=== PATIENT | female | born 1995 | race Caucasian/White ===

== ENCOUNTER 2021-09-19 10:51 | Outpatient (REF) | payer BC, SELFPAY | END 2021-09-19 10:52 | disposition home or self-care (01) | LOC: HO.LAB 10:51 | PROVIDERS: Visit Provider Hospitalist | DX: R82.90 Unspecified abnormal findings in urine (principal) | CPT/HCPCS: 87086 ==

== ENCOUNTER 2023-01-22 15:31 | Outpatient (AMB) | payer BC, SELFPAY ==
--- NOTE | 2023-01-22 15:34 | AM.OFFWIN_ITS ---
Intake Vital Signs 01/22/23 15:38 Height 5 ft 7 in Weight 233 lb BMI 36.5 BP 124/74 Blood Pressure Location Lt brachial Position Sitting Pulse 95 Pulse Source Pulse Oximeter Temp 97.5 F Temp Source Temporal Artery Scan Pulse Oximetry (%) 98 Oxygen Delivery Method Room Air Intake Visit Reasons: EST/rt foot toe numb ongoing Intake Note: Pt is here c/o right foot toe going numb. Pt states it has been on going for a few months. Pt states no falls or injuries, Patient Tobacco Use Status: Never used Tobacco Allergies penicillamine Allergy (Unknown, Verified 01/22/23 16:12) Unknown Penicillins [PENICILLINS] Allergy (Unknown, Verified 01/22/23 16:12) RASH Medication List - Last Reconciled 01/22/23 by MD Adan Anders norgest/e.estradiol-e.estrad 0.15 mg-30 mcg (84)/10 mcg (7) (Seasonique) 1 tab PO DAILY mupirocin 2% 1 appl topical BID 14 days sulfamethoxazole-trimethoprim 800-160 mg (Bactrim DS) 1 tab PO BID 5 days HPI EST/rt foot toe numb ongoing HPI Details 27-year-old female presents to the office for a sick visit. Patient is reporting numbness on her right great toe. She has been having it for the past month. It was throbbing a few weeks ago and the pain has subsided. No complaints elsewhere. Able to walk with no difficulty. Continues to work. [facility] Surgical History No pertinent past surgical history Family History Mother No problems noted. 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 Cognitive needs: No Hearing needs: No Vision needs: No Physical Exam Vital Signs: Last Vital Signs Temp 97.5 F 01/22/23 15:38 Pulse 95 01/22/23 15:38 BP 124/74 01/22/23 15:38 Pulse Ox 98 01/22/23 15:38 Oxygen Delivery Method Room Air 01/22/23 15:38 BMI result Body Mass Index 36.5 Const General: cooperative and healthy appearing Nutritional Appearance: well nourished Orientation/consciousness: patient oriented x3 Limitations: no limitations HEENT Head: Yes normal to inspection Eyes General: appearance normal, both eyes and all related structures Neck Neck: Yes normal visual inspection Chest Chest palpation & inspection: normal palpation of entire chest wall Resp Effort & Inspection: normal respiratory effort Neuro General: patient oriented x3 Extrem Other: Right foot: The tip of the toe just above the nail has less sensation compared to the other areas. No pain. Assessment & Plan Assessment & Plan (1) Paronychia of great toe: Code(s): L03.039 - Cellulitis of unspecified toe Plan: The numbness may be due to infection. Antibiotics will be called in. If symptoms do not improve in a month to follow-up here. Medications: New sulfamethoxazole-trimethoprim 800-160 mg (Bactrim DS) 1 tab PO BID 10 tabs 0RF 5 days Coding Level of Care Code Est Pt Level 3 (53809) Diagnoses Paronychia of great toe L03.039
[2023-01-22 15:38] VITALS: BP 124/74; PULSE 95; TEMP 36.4; O2SAT 98; BMI 36.5
== END 2023-01-22 16:41 | disposition home or self-care (01) ==
PROVIDERS: PCP Hospitalist; Visit Provider Internal Medicine
DX: L03.039 Cellulitis of unspecified toe (principal)
CPT/HCPCS: 99213

== ENCOUNTER 2023-04-16 08:06 | Outpatient (AMB) | payer BC, SELFPAY ==
--- NOTE | 2023-04-16 08:16 | AM.OFFWIN_ITS ---
Intake Vital Signs 04/16/23 08:18 Height 5 ft 7 in Weight 229 lb BMI 35.9 BP 120/68 Blood Pressure Location Rt brachial Position Sitting Pulse 93 Pulse Source Pulse Oximeter Temp 98.2 F Temp Source Temporal Artery Scan Pulse Oximetry (%) 99 Oxygen Delivery Method Room Air Intake Visit Reasons: EP Hair Loss Intake Note: pt is here for c/o hair loss patch back of head, under a lot of stress Patient Tobacco Use Status: Never used Tobacco Allergies penicillamine Allergy (Unknown, Verified 04/16/23 08:45) Unknown Penicillins [PENICILLINS] Allergy (Unknown, Verified 04/16/23 08:45) RASH Medication List - Last Reconciled 04/16/23 by Daniel Cortez MD clonazepam (Klonopin) 0.5 mg PO DAILY L norgest/e.estradiol-e.estrad 0.15 mg-30 mcg (84)/10 mcg (7) (Seasonique) 1 tab PO DAILY mupirocin 2% 1 appl topical BID 14 days Do you need a note to return to daycare/school/sports/work: Yes HPI EP Hair Loss HPI Details 28-year-old female presents to the [facility] for a sick visit. Patient is under significant mental stress. 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 Patient is unable to do the night auditor. In addition the mandatory overtime worsens her situation. Unable to sleep during the day. Racing thoughts at times. Crying spells. Patient has been losing excessive quantity of hair. She has a bald spot [facility] Surgical History No pertinent past surgical history Family History Mother No problems noted. 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 Cognitive needs: No Hearing needs: No Vision needs: No Physical Exam Vital Signs: Last Vital Signs Temp 98.2 F 10/31/23 08:18 Pulse 93 04/16/23 08:18 BP 120/68 04/16/23 08:18 Pulse Ox 99 04/16/23 08:18 Oxygen Delivery Method Room Air 04/16/23 08:18 BMI result Body Mass Index 35.9 Const General: cooperative and healthy appearing Nutritional Appearance: well nourished Orientation/consciousness: patient oriented x3 Limitations: no limitations HEENT Head: Yes normal to inspection Eyes General: appearance normal, both eyes and all related structures Neck Neck: Yes normal visual inspection Chest Chest palpation & inspection: normal palpation of entire chest wall Resp Effort & Inspection: normal respiratory effort Skin Other: Scalp: 3 cm circular area which is bold in the occipital part of the scalp. Neuro General: patient oriented x3 Assessment & Plan Assessment & Plan (1) Alopecia areata: Code(s): L63.9 - Alopecia areata, unspecified Plan: Patient needs to see a primary care provider. She has underlying anxiety which is worsening the lip Essure condition. Blood work to rule out thyroid disorders has been ordered. Clonazepam for anxiety has been provided. Patient needs to start SSRIs. A work note stating that patient cannot working extended hours has been given. Orders: Orders Thyroid Stimulating Hormone Today L63.9 - Alopecia areata, unspecified Complete Blood Count no Diff Today L63.9 - Alopecia areata, unspecified Liver Panel Today L63.9 - Alopecia areata, unspecified Lipid Panel Today L63.9 - Alopecia areata, unspecified Basic Metabolic Panel Today L63.9 - Alopecia areata, unspecified Erythrocyte Sedimentation Rate Today L63.9 - Alopecia areata, unspecified Medications: New clonazepam (Klonopin) 0.5 mg PO DAILY 14 tabs 0RF Coding Level of Care Code Est Pt Level 4 (92114) Diagnoses Alopecia areata L63.9
[2023-04-16 08:18] VITALS: BP 120/68; PULSE 93; TEMP 36.8; O2SAT 99; BMI 35.9
== END 2023-04-16 09:16 | disposition home or self-care (01) ==
PROVIDERS: PCP Hospitalist; Visit Provider Internal Medicine
DX: L63.9 Alopecia areata, unspecified (principal)
CPT/HCPCS: 99214

== ENCOUNTER 2023-08-08 11:27 | Outpatient (AMB) | payer BC, SELFPAY ==
[2023-08-08 11:41] VITALS: BP 118/80; PULSE 96; O2SAT 98; BMI 35.1
--- NOTE | 2023-08-08 11:41 | A.OFFPC_ITS ---
Vital Signs 08/08/23 11:41 Height 5 ft 7 in Weight 224 lb 7 oz BMI 35.1 BP 118/80 Blood Pressure Location Lt brachial Position Sitting Pulse 96 Pulse Source Pulse Oximeter Pulse Oximetry (%) 98 Oxygen Delivery Method Room Air Intake Visit Reasons: Hair Loss F/U Intake Note: Patient is here to follow up on hair loss, she states it's more, now, she states she is losing sleep, too. Patient is stating that she has been under a lot of stress lately. Is last menstrual period known: Yes (6 months ago, due to control) Allergies penicillamine Allergy (Unknown, Verified 08/08/23 11:44) Unknown Penicillins [PENICILLINS] Allergy (Unknown, Verified 08/08/23 11:44) RASH Tobacco use date assessed: 04/19/22 HPI Hair Loss F/U HPI Details 26 y/o female presents to f/u hair loss. Had ordered labs but did not seem to be done. Pt notes hair had started to grow back. Pt reports osme anxiety/difficulty sleeping. She denies any symptoms of sleep apnea. [facility] Surgical History No pertinent past surgical history Family History Mother No problems noted. 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 1. Little interest or pleasure in doing things: more than half the days 2. Feeling down, depressed, or hopeless: several days 3. Trouble falling or staying asleep, or sleeping too much: nearly every day 4. Feeling tired or having little energy: more than half the days 5. Poor appetite or overeating: not at all 6. Feeling bad about yourself - or that you are a failure or have let yourself or your family down: several days 7. Trouble concentrating on things, such as reading the newspaper or watching television: not at all 8. Moving or speaking so slowly that other people could have noticed. Or the opposite - being so fidgety or restless that you have been moving around a lot more than usual: not at all 9. Thoughts that you would be better off or of hurting yourself in some way: not at all Total score: 9 Source: Developed by Drs. Wilmar Machuca, Pepper Vasquez, Randy Martinez and colleagues, with an educational edwin from [employer]. Thrive Questionnaire Date Thrive assessed: 05/15/21 ASH-7 AMB Questionnaire ASH-7 Date ASH - 7 assessed: 08/08/23 Feeling nervous, anxious, or on edge: 2 = More than half the days Not being able to stop or control worryin = More than half the days Worrying too much about different things: 2 = More than half the days Trouble relaxin = Several days Being so restless that it is hard to sit still: 0 = Not at all Becoming easily annoyed or irritable: 2 = More than half the days Feeling afraid as if something awful might happen: 0 = Not at all Total ASH-7 score (0-4 normal; 5-9 mild; 10-14 moderate; 15-21 severe): 9 Source: Developed by Drs. Wilmar Machuca, Pepper Vasquez, Randy Martinez and colleagues, with an educational edwin from [employer]. Review of Systems Const Denies chills, Denies fatigue, Denies fever(s), Denies headache(s) and Denies weakness ENT Denies dizziness and Denies headache(s) Card Denies dyspnea Resp Denies cough, Denies dyspnea, Denies wheezing and Denies other (shortness of breath) Musc Denies numbness and Denies tingling Neuro Denies dizziness, Denies headache(s), Denies numbness, Denies tingling and Denies weakness Psych Denies anxiety and Denies depression Endo Denies fatigue Aller/Immun Denies wheezing Physical exam (Primary Care) Vital Signs: Last Vital Signs Pulse 96 08/08/23 11:41 BP 118/80 08/08/23 11:41 Pulse Ox 98 08/08/23 11:41 Oxygen Delivery Method Room Air 08/08/23 11:41 BMI result Body Mass Index 35.1 Tobacco/Smoking Status: Tobacco use Status Tobacco use date assessed 04/19/22 08/08/23 11:48 Patient Tobacco Use Status Never used Tobacco 08/08/23 11:48 e-Cigarette/Vaping Use Never Used 08/08/23 11:48 PHQ-9: PHQ-9 Score PHQ-9: Total score 9 08/08/23 12:00 Thrive Assessment: Date of Thrive Assessment Date Thrive assessed 05/15/21 08/08/23 11:48 Const General: well developed; No acute distress Nutritional Appearance: well nourished Orientation/consciousness: patient oriented x3 HENMT Head: Yes normocephalic and Yes atraumatic Eyes General: appearance normal, both eyes and all related structures Pupils: Equal, round and reactive pupils present EOM: EOMs intact bilaterally Resp Effort & Inspection: normal respiratory effort Neuro General: patient oriented x3 and gait normal Cranial nerves: Yes Equal, round and reactive pupils present Psych Affect: normal affect Assessment and Plan Assessment & Plan (1) Alopecia areata: Code(s): L63.9 - Alopecia areata, unspecified Plan: On?scaring alopecia?at?posterior?sc alp?and?small?area?at?front?left?area?of?scalp. Checking?labs Work?on?underlying?issues?such?as?anxiety/stress Will?give?her?another?letter?to?continue?to?avoid?working?overtime?so?she?can?ge t?more?rest/sleep Referred?to?dermatology (2) Difficulty sleeping: Code(s): G47.9 - Sleep disorder, unspecified Plan: Strong?family?history?of?sleep?apnea?with?both?parents?having?sleep?apnea. Patient?is?obese Has?difficulty?with?falling?asleep/staying?sleep Works?3rd?shift I?have?referred?her?to?Sleep?Medicine?for?evaluation Also?recommended?hair?and?nail?vitamins?which?she?can?get?over?the?counter (3) Anxiety: Code(s): F41.9 - Anxiety disorder, unspecified Plan: As?above,?will?give?her?a?note?for?work?as?she?has?increased?stress?and?should?n ot?be?working?overtime Will?trial?Zoloft Follow-up?in?3-4?weeks Orders: Orders Free T4 (Free Thyroxine) Today E03.9 - Hypothyroidism, unspecified Thyroid Stimulating Hormone Today E03.9 - Hypothyroidism, unspecified Triiodothyronine T3 Total Today E03.9 - Hypothyroidism, unspecified Comprehensive Met. Panel Today F41.9 - Anxiety disorder, unspecified Complete Blood Count Auto Diff Today F41.9 - Anxiety disorder, unspecified, Z00.00 - Encounter for general adult medical examination without abnormal findings Erythrocyte Sedimentation Rate Today F41.9 - Anxiety disorder, unspecified Referrals Sleep Medicine Referral G47.9 - Sleep disorder, unspecified Dermatology Referral L63.9 - Alopecia areata, unspecified Medications: New sertraline 50 mg PO DAILY 30 tabs 2RF 30 days Coding Level of Care Code Est Pt Level 4 (32484) Diagnoses Alopecia areata L63.9 Difficulty sleeping G47.9 Anxiety F41.9
== END 2023-08-08 12:37 | disposition home or self-care (01) ==
PROVIDERS: PCP Hospitalist; Visit Provider Family Medicine
DX: L63.9 Alopecia areata, unspecified (principal); G47.9 Sleep disorder, unspecified; F41.9 Anxiety disorder, unspecified
CPT/HCPCS: 99214

== ENCOUNTER 2023-08-08 12:28 | Outpatient (REF) | payer BC, SELFPAY ==
[2023-08-08 14:29] LABS: MANUAL DIFF FLAG NO
[2023-08-08 14:34] LABS: Basophils Absolute Auto 0.1 X10*3/uL (0.0-0.2); Basophils Percent Auto 0.6 % (0-2); Eosinophils Absolute Auto 0.3 X10*3/uL (0.0-0.4); Eosinophils Percent Auto 4.1 % (0-4); Hematocrit 40.5 % (37.0-47.0); Hemoglobin 13.7 g/dl (12.0-16.0); Imm Gran Abs Auto 0.02 X10*3/uL (0.00-0.03); Imm Gran Pct Auto 0.2 % (0.0-0.4); Lymphocytes Percent Auto 37.4 % (20-40); Mean Corpuscular HGB Conc 33.8 g/dl (31.0-35.0); Mean Corpuscular Hemoglobin 29.5 pg (27.0-33.0); Mean Corpuscular Volume 87.3 fL (80.0-98.0); Mean Platelet Volume 9.1 fL (9.4-12.3); Monocytes Absolute Auto 0.5 X10*3/uL (0.1-1.2); Monocytes Percent Auto 6.7 % (2-11); Neutrophils Absolute Auto 4.1 x10*3/uL (2.0-8.3); Platelet Count 284 X10*3/uL (160-400); Red Blood Count 4.64 X10*6/uL (4.20-5.50); White Blood Count 8.1 X10*3/uL (4.8-10.8)
[2023-08-08 15:05] LABS: Alanine Aminotransferase 21 U/L (0-31); Albumin Level 4.1 g/dL (3.5-5.0); Alkaline Phosphatase 73 U/L (39-117); Anion Gap 13 (12-20); Aspartate Amino Transferase 22 U/L (5-31); Bilirubin Total 1.4 mg/dL (0.0-1.0); Blood Urea Nitrogen 16 mg/dL (9-16); Calcium 9.4 mg/dL (8.4-10.2); Carbon Dioxide 25 mmol/L (22-29); Chloride 106 mmol/L (96-108); Estimated Glomerular Filt Rate > 60; Glucose Random 76 mg/dL (60-115); Sodium 140 mmol/L (135-145)
[2023-08-08 15:09] LABS: Thyroid Stimulating Hormone 1.32 uIU/mL (0.32-4.0)
[2023-08-08 15:26] LABS: Erythrocyte Sedimentation Rate 7 MM/HR (0-20)
[2023-08-09 09:17] LABS: Triiodothyronine T3 Total 167 ng/dL (76-181)
== END 2023-08-08 12:29 | disposition home or self-care (01) ==
LOC: HO.WFDLDS 12:28
PROVIDERS: Visit Provider Family Medicine
DX: Z00.00 Encounter for general adult medical examination without abnormal findings (principal); E03.9 Hypothyroidism, unspecified; F41.9 Anxiety disorder, unspecified
CPT/HCPCS: 36415; 80053; 84439; 84443; 84480; 85025; 85652

== ENCOUNTER 2023-08-16 13:55 | Outpatient (AMB) | payer BC, SELFPAY ==
[2023-08-16 14:09] VITALS: BP 122/88; PULSE 81; O2SAT 98; BMI 35.9
--- NOTE | 2023-08-16 14:09 | MHC.OFFVIS ---
Intake Vital Signs 08/16/23 14:09 Height 5 ft 7 in Weight 229 lb BMI 35.9 BP 122/88 Blood Pressure Location Rt brachial Position Sitting Pulse 81 Pulse Source Pulse Oximeter Pulse Oximetry (%) 98 Oxygen Delivery Method Room Air Intake Visit Reasons: INP-Sleep disorder-Conf Intake Note: Patient presents for sleep issues. Has started to have issues with falling asleep when starting 3rd shift in February. Allergies penicillamine Allergy (Unknown, Verified 08/16/23 14:11) Unknown Penicillins [PENICILLINS] Allergy (Unknown, Verified 08/16/23 14:11) RASH Medication List - Last Reconciled 08/16/23 by MARIUSZ Valenzuela norgest/e.estradiol-e.estrad 0.15 mg-30 mcg (84)/10 mcg (7) (Seasonique) 1 tab PO DAILY multivitamin with minerals (Hair,Skin and Nails tablet) 1 tab PO BEDTIME sertraline 50 mg PO DAILY 30 days HPI HPI Comments History of Present Illness Details 28-yr-old female presents for new in-person patient visit for sleep consultation. Pt started working 3rd (11pm-7am) shift at a [employer] in Feb 2024. 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 Since, she has had difficulty sleeping- specifically difficulty staying and falling asleep. However, can easily fall asleep during her shift break while at work. She has also had increased stress, anxiety, ammenorhea, and hair loss. 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 Her bedroom is dark and quiet. She does not have excessive caffeine intake. Does not usually eat while at work. Does still eat 3 meals per day at usual times. 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 She denies snoring, gasping arousals, wt gain. Prior to working 3rd shift, she did not have any difficulty sleeping. [facility] Surgical History (Updated 08/16/23 @ 14:12 by TIMOTHY Flower) S/P wisdom tooth extraction No pertinent past surgical history Family History Mother No problems noted. 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 Cognitive needs: No Hearing needs: No Vision needs: No Review of Systems Const All systems reviewed & are unremarkable except as noted in HPI and below Physical Exam Vital Signs: Last Vital Signs Pulse 81 08/16/23 14:09 BP 122/88 08/16/23 14:09 Pulse Ox 98 08/16/23 14:09 Oxygen Delivery Method Room Air 08/16/23 14:09 BMI result Body Mass Index 35.9 Const General: no acute distress Orientation/consciousness: patient oriented x3 Resp Effort & Inspection: able to speak in complete sentences Neuro General: patient oriented x3 Psych Mental Status: mental status grossly normal Speech and movement: Clear speech present Attitude: cooperative Assessment & Plan Assessment & Plan (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 Continue to sleep in a dark, quiet space. Concur with eating her primary meals during day/evening rather than at night. Information shared on sleep hygiene and CBT-insomnia resources. 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 f/u in 4-6 months or sooner prn. Telehealth Telehealth Location of provider rendering services: practice address Location of patient: address on file Patient Identification confirmed using: Name, : Yes Telehealth method: voice only Patient verbally consented to treatment: Yes Patient verbally consented to billing insurance company: Yes Patient informed of any privacy concerns related to visit: Yes Coding Level of Care Code New Pt Level 3 (08101) Diagnoses Shift work sleep disorder G47.26 Difficulty sleeping G47.9
== END 2023-08-16 15:31 | disposition home or self-care (01) ==
PROVIDERS: PCP Hospitalist; Visit Provider Nurse Practitioner Family
DX: G47.26 Circadian rhythm sleep disorder, shift work type (principal); G47.9 Sleep disorder, unspecified
CPT/HCPCS: 99203

== ENCOUNTER → 2023-08-16 13:55 | Outpatient (BNVA) | payer BC, SELFPAY | PROVIDERS: PCP Hospitalist; Visit Provider Nurse Practitioner Family ==

== ENCOUNTER 2023-09-12 15:37 | Outpatient (AMB) | payer BC, SELFPAY ==
--- NOTE | 2023-09-12 15:32 | MHC.PC.OV ---
Intake Visit Reasons: f/u labs Intake Note: Patient is following up on her lab work today. Allergies penicillamine Allergy (Unknown, Verified 09/12/23 15:33) Unknown Penicillins [PENICILLINS] Allergy (Unknown, Verified 09/12/23 15:33) RASH Tobacco use date assessed: 09/12/23 Dental Screening Dental Screen Date: 09/12/23 Did you have a dental visit in the last 12 months?: Yes Did you have a dental problem in the last 6 months where you did not have access to dental care?: No Was dental information given to patient?: Patient has dentist HPI f/u labs HPI Details 28 y/o female presents to f/u anxiety and labwork. Had started her on zoloft. Lab work is to evaluate for alopecia which is likely secondary to stress/anxiety. Labs were drawn 08/08/23. Reviewed labs with pt. Labs seem fine. Pt reports alopecia unchanged. Dermatology has not contacted her yet. She notes sertraline seems to have improved her mood. [facility] Surgical History S/P wisdom tooth extraction No pertinent past surgical history Family History Mother No problems noted. 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 Wilmar Machuca, Pepper Vasquez, Randy Martinez and colleagues, with an educational edwin from [employer]. Review of Systems Const Denies chills, Denies fatigue, Denies fever(s), Denies headache(s) and Denies weakness ENT Denies dizziness and Denies headache(s) Card Denies dyspnea Resp Denies cough, Denies dyspnea, Denies wheezing and Denies other (shortness of breath) Musc Denies numbness and Denies tingling Neuro Denies dizziness, Denies headache(s), Denies numbness, Denies tingling and Denies weakness Psych Denies anxiety and Denies depression Endo Denies fatigue Aller/Immun Denies wheezing Physical exam (Primary Care) Tobacco/Smoking Status: Tobacco use Status Tobacco use date assessed 09/12/23 09/12/23 15:36 Patient Tobacco Use Status Never used Tobacco 09/12/23 15:36 e-Cigarette/Vaping Use Never Used 09/12/23 15:36 Thrive Assessment: Date of Thrive Assessment Date Thrive assessed 05/15/21 09/12/23 15:36 Telehealth Telehealth Location of provider rendering services: practice address Location of patient: address on file Patient Identification confirmed using: Name, : Yes Telehealth method: voice only Patient verbally consented to treatment: Yes Patient verbally consented to billing insurance company: Yes Patient informed of any privacy concerns related to visit: Yes Minutes spent on Phone/Video with Pt.: 7 Assessment and Plan Assessment & Plan (1) Anxiety: Code(s): F41.9 - Anxiety disorder, unspecified Plan: Patient?notes?significant?improvement?with?starting?sertraline?50?mg?daily.??She?had?been?wondering?about?increasing?the?dose. She?will?try?1.5?tablets?of?sertraline?50?mg?(75?mg?daily). She?can?go?back?to?50?mg?daily?if?she?has?any?problems. Script?sent We?can?follow-up?in?a?couple?of?months (2) Alopecia areata: Code(s): L63.9 - Alopecia areata, unspecified Plan: Patient?still?has?some?alopecia?at?crown?of?head Lab?work?was?unrevealing Had?referred?her?to?new?[facility]?dermatology?but?they?have?not?responded?and?she?would?like?a?referral?to [facility]?dermatology Referral?made Medications: Changed From sertraline 50 mg PO DAILY 30 days 30 tabs 2RF To sertraline 75 mg (1.5 x 50 mg) PO DAILY 30 days 45 tabs 2RF Coding Level of Care Code Tele Est Pt Level 2 (36399) Diagnoses Anxiety F41.9 Alopecia areata L63.9
== END 2023-09-12 17:00 | disposition home or self-care (01) ==
LOC: HO.HMGFM 15:37
PROVIDERS: PCP Hospitalist; Visit Provider Family Medicine
DX: F41.9 Anxiety disorder, unspecified (principal); L63.9 Alopecia areata, unspecified
CPT/HCPCS: 99441

== ENCOUNTER 2023-10-18 15:00 | Outpatient (AMB) | payer BC, SELFPAY ==
[2023-10-18 15:01] VITALS: BP 134/80; PULSE 95; TEMP 36.7; O2SAT 99; BMI 35.1
--- NOTE | 2023-10-18 15:01 | AM.OFFWIN_ITS ---
Intake Vital Signs 3 10/18/23 15:01 Height 5 ft 7 in Weight 224 lb 2 oz BMI 35.1 BP 134/80 Blood Pressure Location Lt brachial Position Sitting Pulse 95 Pulse Source Pulse Oximeter Temp 98.0 F Temp Source Oral Pulse Oximetry (%) 99 Oxygen Delivery Method Room Air Intake Visit Reasons: EP rash on neck and behind ears Intake Note: Pt presents to the office today for c/o rash on her neck and behind her ears. She states this started about 2 days ago. She states it is itchy. Patient Tobacco Use Status: Never used Tobacco Allergies penicillamine Allergy (Unknown, Verified 10/18/23 15:04) Unknown Penicillins [PENICILLINS] Allergy (Unknown, Verified 10/18/23 15:04) RASH HPI HPI Comments 2 History of Present Illness0 Details 28 y/o female patient who presents to [facility] with c/o Rash that is very itchy, burning and feeling pins/needles. She noticed the rash 2 days ago. Rash is located on the back of her neck. 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 [facility] Surgical History S/P wisdom tooth extraction No pertinent past surgical history Family History Mother No problems noted. 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 Very tender to touch and burning and itching. Rashes: rashes noted Full body images: 2 1. A group of Small red fluid filled vesicles on the back of the neck. Very tender to touch and burning and itching. Neuro General: patient oriented x3, gait normal and moves all extremities Psych Speech and movement: Normal speech and movement present Assessment & Plan Assessment & Plan (1) Rash and nonspecific skin eruption: Code(s): R21 - Rash and other nonspecific skin eruption Plan: Shingles vs Dermatitis vs Eczema Take medicine as directed. Ordered Valacyclovir - symptoms within 72 hours. Medications: New 2 valacyclovir 1,000 mg PO BID 10 days 20 tabs 0RF R21 - Rash and other nonspecific skin eruption diphenhydramine HCl (Benadryl Allergy) 25 mg PO BEDTIME PRN 20 tabs 0RF itching R21 - Rash and other nonspecific skin eruption Coding Level of Care Code Est Pt Level 3 (74267) Diagnoses Rash and nonspecific skin eruption R21 Time Spent (min) 15
== END 2023-10-18 16:03 | disposition home or self-care (01) ==
PROVIDERS: PCP Hospitalist; Visit Provider Nurse Practitioner Family
DX: R21 Rash and other nonspecific skin eruption (principal)
CPT/HCPCS: 99213

== ENCOUNTER → 2023-12-11 16:06 | Outpatient (AMB) | payer BC, SELFPAY ==
[2023-12-11 16:12] VITALS: BP 126/76; PULSE 81; O2SAT 98; BMI 34.6
--- NOTE | 2023-12-11 16:12 | A.OFFPC_ITS ---
Vital Signs 12/11/23 16:12 Height 5 ft 7 in Weight 221 lb 2 oz BMI 34.6 BP 126/76 Blood Pressure Location Lt brachial Position Sitting Pulse 81 Pulse Source Pulse Oximeter Pulse Oximetry (%) 98 Oxygen Delivery Method Room Air Intake Visit Reasons: 3 month f/u Intake Note: Patient is here to follow up on anxiety and alopecia. She would like to talk about FMLA with her anxiety, trouble sleeping. Allergies penicillamine Allergy (Unknown, Verified 12/11/23 16:16) Unknown Penicillins [PENICILLINS] Allergy (Unknown, Verified 12/11/23 16:16) RASH Medication List - Last Reconciled 12/11/23 by Luca Severino MD L norgest/e.estradiol-e.estrad 0.15 mg-30 mcg (84)/10 mcg (7) (Seasonique) 1 tab PO DAILY multivitamin with minerals (Hair,Skin and Nails tablet) 1 tab PO BEDTIME sertraline 75 mg (1.5 x 50 mg) PO DAILY 30 days Tobacco use date assessed: 09/12/23 Dental Screening Dental Screen Date: 09/12/23 HPI 3 month f/u HPI Details 28 y/o female presents to f/u anxiety. Had started her on sertraline and she stated she had been doing well on this so increased it from 50mg to 75mg daily. Pt states she would like to discuss FMLA for anxiety/difficulty sleeping. HPI Comments History of Present Illness Details Documentation assistance for Luca Severino MD, was provided by Tylor Alcaraz, [employer] on 12/11/2023 at 4:34 PM EST. I, Dr. Severino, have read, observed, and verified documentation. [facility] Surgical History S/P wisdom tooth extraction No pertinent past surgical history Family History Mother No problems noted. 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 Wilmar Machuca, Pepper Vasquez, Randy Martinez and colleagues, with an educational edwin from [employer]. Review of Systems Const Denies chills, Denies fatigue, Denies fever(s), Denies headache(s) and Denies weakness ENT Denies dizziness and Denies headache(s) Card Denies dyspnea Resp Denies cough, Denies dyspnea, Denies wheezing and Denies other (shortness of breath) Musc Denies numbness and Denies tingling Neuro Denies dizziness, Denies headache(s), Denies numbness, Denies tingling and Denies weakness Psych Reports anxiety and Denies depression Endo Denies fatigue Aller/Immun Denies wheezing Physical exam (Primary Care) BMI result Body Mass Index 34.6 Tobacco/Smoking Status: Tobacco use Status Tobacco use date assessed 09/12/23 12/11/23 16:13 Patient Tobacco Use Status Never used Tobacco 12/11/23 16:13 e-Cigarette/Vaping Use Never Used 12/11/23 16:13 Thrive Assessment: Date of Thrive Assessment Date Thrive assessed 05/15/21 12/11/23 16:13 Const General: well developed; No acute distress Nutritional Appearance: well nourished Orientation/consciousness: patient oriented x3 HENMT Head: Yes normocephalic and Yes atraumatic Eyes General: appearance normal, both eyes and all related structures Pupils: Equal, round and reactive pupils present EOM: EOMs intact bilaterally Resp Effort & Inspection: normal respiratory effort Neuro General: patient oriented x3 and gait normal Cranial nerves: Yes Equal, round and reactive pupils present Psych Affect: normal affect Assessment and Plan Assessment & Plan (1) Anxiety: Code(s): F41.9 - Anxiety disorder, unspecified Plan: Ongoing/worsened?anxiety?and?also?difficulty?sleeping. Had?seen?Sleep?Medicine but?they?did?not?feel?that?her?symptoms?warranted?a?sleep?study.??Did?recommend? follow-up?however. Will?give?her?a?script?for?trazodone?which?s he?can?try?for?both?sleep?and?may?also?improve?mood. If?still?having?difficulty?with?anxiety, would?consider?a?2nd?line?medication?such?as?lorazepam?or?clonazepam. Her?anxiety?and?difficulty?sleepi ng?are?exacerbated?by?3rd?shift?were?and?also?working?overtime.??I?have?recommen ded?she?not?work?more?than?8?hours?per?day?or?40?hours?per?week.??I?have?sent?a? letter?to?his?employer?regarding?this. Will?complete?FMLA?paperwork?for?her?if?they?provide?her?with?it. (2) Difficulty sleeping: Code(s): G47.9 - Sleep disorder, unspecified Plan: As?above,?trialing?trazodone Will?recommend?that?she?follow-up?with?sleep?medicine (3) Alopecia areata: Code(s): L63.9 - Alopecia areata, unspecified Plan: Worsening?alopecia She?has?still?not?been?contacted?by?Dermatology?and?I?will?ask?t he?office?to?facilitate?an?appointment. Orders: Orders Lipid Panel Today Z00.00 - Encounter for general adult medical examination without abnormal findings Microalbumin, Random (w Creat) Today I10 - Essential (primary) hypertension TSH reflex Free T4 Today Z00.00 - Encounter for general adult medical examination without abnormal findings Comprehensive [place]. Panel Fast Today Z00.00 - Encounter for general adult medical examination without abnormal findings Complete Blood Count Auto Diff Today Z00.00 - Encounter for general adult medical examination without abnormal findings UA and rflx microscopic Today Z00.00 - Encounter for general adult medical examination without abnormal findings Coding Level of Care Code Est Pt Level 3 (38926) Diagnoses Anxiety F41.9 Difficulty sleeping G47.9 Alopecia areata L63.9
== END ==
PROVIDERS: PCP Hospitalist; Visit Provider Family Medicine
DX: F41.9 Anxiety disorder, unspecified (principal); G47.9 Sleep disorder, unspecified; L63.9 Alopecia areata, unspecified
CPT/HCPCS: 99213

== ENCOUNTER 2024-01-03 14:19 | Outpatient (AMB) | payer BC, SELFPAY ==
--- NOTE | 2024-01-03 14:33 | A.OFFPC_ITS ---
Intake Visit Reasons: alopecia Allergies penicillamine Allergy (Unknown, Verified 12/11/23 16:16) Unknown Penicillins [PENICILLINS] Allergy (Unknown, Verified 12/11/23 16:16) RASH Tobacco use date assessed: 09/12/23 Dental Screening Dental Screen Date: 09/12/23 [facility] Surgical History S/P wisdom tooth extraction No pertinent past surgical history Family History Mother No problems noted. 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 Wilmar Machuca, Pepper Vasquez, Randy Martinez and colleagues, with an educational edwin from [employer]. Physical exam (Primary Care) Tobacco/Smoking Status: Tobacco use Status Tobacco use date assessed 09/12/23 12/11/23 16:13 Patient Tobacco Use Status Never used Tobacco 12/11/23 16:13 e-Cigarette/Vaping Use Never Used 12/11/23 16:13 Thrive Assessment: Date of Thrive Assessment Date Thrive assessed 05/15/21 12/11/23 16:13 Coding
[2024-01-03 14:35] VITALS: BP 122/68; PULSE 82; O2SAT 98; BMI 35.4
--- NOTE | 2024-01-03 14:35 | MHC.PC.OV ---
Vital Signs 01/03/24 14:35 Height 5 ft 7 in Weight 226 lb BMI 35.4 BP 122/68 Blood Pressure Location Lt brachial Position Sitting Pulse 82 Pulse Source Pulse Oximeter Pulse Oximetry (%) 98 Oxygen Delivery Method Room Air Intake Visit Reasons: alopecia Intake Note: Patient is looking for a solution for the alopecia until she sees deramatology. Patient is following up on anxiety. Allergies penicillamine Allergy (Unknown, Verified 01/03/24 14:39) Unknown Penicillins [PENICILLINS] Allergy (Unknown, Verified 01/03/24 14:39) RASH Tobacco use date assessed: 01/03/24 Dental Screening Dental Screen Date: 09/12/23 HPI alopecia HPI Details 28 y/o female presents to f/u anxiety, alopecia. Had referred her to Dermatology for worsening alopecia. Had given her a script for trazodone for anxiety/difficulty sleeping. PHQ-9 4, ASH-7 4 today. Pt notes trazodone did not help her sleep - she additionally felt groggy when she woke up. Pt notes mood improved on sertraline 75mg daily though she notes some days of irritability/anxiety. [facility] Surgical History S/P wisdom tooth extraction No pertinent past surgical history Family History Mother No problems noted. 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 1. Little interest or pleasure in doing things: not at all 2. Feeling down, depressed, or hopeless: not at all 3. Trouble falling or staying asleep, or sleeping too much: nearly every day 4. Feeling tired or having little energy: not at all 5. Poor appetite or overeating: several days 6. Feeling bad about yourself - or that you are a failure or have let yourself or your family down: not at all 7. Trouble concentrating on things, such as reading the newspaper or watching television: not at all 8. Moving or speaking so slowly that other people could have noticed. Or the opposite - being so fidgety or restless that you have been moving around a lot more than usual: not at all 9. Thoughts that you would be better off or of hurting yourself in some way: not at all Total score: 4 Depression Screening Interpretation: Negative Depression Screening Done: Yes Source: Developed by Drs. Wilmar Machuca, Pepper Vasquez, Randy Martinez and colleagues, with an educational edwin from [employer]. Thrive Questionnaire Date Thrive assessed: 05/15/21 ASH-7 AMB Questionnaire ASH-7 Date ASH - 7 assessed: 01/03/24 Feeling nervous, anxious, or on edge: 1 = Several days Not being able to stop or control worryin = Several days Worrying too much about different things: 1 = Several days Trouble relaxin = Not at all Being so restless that it is hard to sit still: 0 = Not at all Becoming easily annoyed or irritable: 1 = Several days Feeling afraid as if something awful might happen: 0 = Not at all Total ASH-7 score (0-4 normal; 5-9 mild; 10-14 moderate; 15-21 severe): 4 Source: Developed by Drs. Wilmar Machuca, Pepper Vasquez, Randy Martinez and colleagues, with an educational edwin from [employer]. Review of Systems Const Denies chills, Denies fatigue, Denies fever(s), Denies headache(s) and Denies weakness ENT Denies dizziness and Denies headache(s) Card Denies dyspnea Resp Denies cough, Denies dyspnea, Denies wheezing and Denies other (shortness of breath) Musc Denies numbness and Denies tingling Neuro Denies dizziness, Denies headache(s), Denies numbness, Denies tingling and Denies weakness Psych Reports anxiety Endo Denies fatigue Aller/Immun Denies wheezing Physical exam (Primary Care) Vital Signs: Last Vital Signs Pulse 82 01/03/24 14:35 BP 122/68 01/03/24 14:35 Pulse Ox 98 01/03/24 14:35 Oxygen Delivery Method Room Air 01/03/24 14:35 BMI result Body Mass Index 35.4 Tobacco/Smoking Status: Tobacco use Status Tobacco use date assessed 01/03/24 01/03/24 14:45 Patient Tobacco Use Status Never used Tobacco 01/03/24 14:38 e-Cigarette/Vaping Use Never Used 01/03/24 14:38 PHQ-9: PHQ-9 Score PHQ-9: Total score 4 01/03/24 15:55 Depression Screening Interpretation: Negative Thrive Assessment: Date of Thrive Assessment Date Thrive assessed 05/15/21 01/03/24 14:38 Const General: well developed; No acute distress Nutritional Appearance: well nourished Orientation/consciousness: patient oriented x3 HENMT Head: Yes normocephalic and Yes atraumatic Eyes General: appearance normal, both eyes and all related structures Pupils: Equal, round and reactive pupils present EOM: EOMs intact bilaterally Resp Effort & Inspection: normal respiratory effort Neuro General: patient oriented x3 and gait normal Cranial nerves: Yes Equal, round and reactive pupils present Psych Affect: normal affect Assessment and Plan Assessment & Plan (1) Anxiety: Code(s): F41.9 - Anxiety disorder, unspecified Plan: Ongoing?anxiety - taking?sertraline?as?prescribed Will?add?bupropion?as?adjunct?medication (2) Alopecia areata: Code(s): L63.9 - Alopecia areata, unspecified Plan: Worsening?alopecia?areata?with?lesion?at?right?and?left?sides?of?scalp Will?give?her?a?script?for?ketoconazole.??When?finish?she?will?start?fluocinolone?shampoo Have?tried?referring?her?to?several?email marketing intern?and?[facility]?time?is?very?long.??Will?try?[facility]?dermatology (3) Difficulty sleeping: Code(s): G47.9 - Sleep disorder, unspecified Plan: Has?tried?trazodone?without?any?improve Trial?of?Lunesta Orders: Referrals Dermatology Referral L63.9 - Alopecia areata, unspecified Medications: New ketoconazole 2% 1 appl topical 2XW 14 days 120 mL 0RF eszopiclone (Lunesta) 2 mg PO BEDTIME 14 days 14 tabs 1RF fluocinolone 0.01% 30 mL topical DAILY 7 days 120 mL 0RF bupropion HCl 75 mg PO QAM 30 days 30 tabs 1RF Discontinued trazodone Discontinued Reason: Doctor's Order 50 mg PO BEDTIME 30 days PRN 30 tabs 1RF sleep Coding Level of Care Code Est Pt Level 4 (06296) Diagnoses Anxiety F41.9 Alopecia areata L63.9 Difficulty sleeping G47.9
== END 2024-01-03 16:14 | disposition home or self-care (01) ==
PROVIDERS: PCP Family Medicine; Visit Provider Family Medicine
DX: F41.9 Anxiety disorder, unspecified (principal); L63.9 Alopecia areata, unspecified; G47.9 Sleep disorder, unspecified
CPT/HCPCS: 99214

== ENCOUNTER 2024-04-10 08:02 | Outpatient (AMB) | payer BC, SELFPAY ==
--- NOTE | 2024-04-10 08:05 | AM.OFFWIN_ITS ---
Intake Vital Signs 04/10/24 08:06 Height 5 ft 7 in Weight 221 lb BMI 34.6 BP 136/98 H Blood Pressure Location Lt brachial Position Sitting Pulse 76 Pulse Source Pulse Oximeter Temp 97.7 F Temp Source Oral Pulse Oximetry (%) 98 Intake Visit Reasons: EP-migraine Patient Tobacco Use Status: Never used Tobacco Allergies penicillamine Allergy (Unknown, Verified 04/10/24 08:07) Unknown Penicillins [PENICILLINS] Allergy (Unknown, Verified 04/10/24 08:07) RASH HPI HPI Comments History of Present Illness Details Patient is a 29-year-old female complaining of headaches for the last month. She said she works 3rd shift for the past year but the headaches just started a month ago. She tells me she has also had some hair loss in the same area where the headaches originate on the top right side of her head. She states she has tried taking 1 g of Tylenol but it does not seem to knock out her headache. She tells me last weekend she had 1 episode of vomiting with [facility] at the same time but she did not denies any nausea, visual changes, light sensitivity, sound sensitivity or dizziness. She tells me she is eating and drinking her normal amount and is getting her typical amount of rest. She states the headache is not a thunderclap headache or the worst headaches of her life. [facility] Surgical History S/P wisdom tooth extraction No pertinent past surgical history Family History Mother No problems noted. 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 Cognitive needs: No Hearing needs: No Vision needs: No Review of Systems Const All systems reviewed & are unremarkable except as noted in HPI and below Physical Exam Vital Signs: Last Vital Signs Temp 97.7 F 04/10/24 08:06 Pulse 76 04/10/24 08:06 BP 136/98 H 04/10/24 08:06 Pulse Ox 98 04/10/24 08:06 BMI result Body Mass Index 34.6 Const General: cooperative, healthy appearing, comfortable, no acute distress and well developed Orientation/consciousness: patient oriented x3 Limitations: no limitations HEENT Head: Yes normal to inspection Ears: hearing grossly normal bilaterally General nose exam: Normal external nose present Face and sinus: Yes normal facial exam Eyes General: appearance normal, both eyes and all related structures Neck Neck: Yes normal visual inspection and Yes full ROM Resp Effort & Inspection: normal respiratory effort and able to speak in complete sentences Skin General skin exam: no rashes or lesions noted Neuro General: patient oriented x3 Extrem General: Yes normal to inspection Assessment & Plan Assessment & Plan (1) Headache: Code(s): R51.9 - Headache, unspecified Qualifiers: Headache type: unspecified Headache chronicity pattern: acute headache Intractability: intractable Qualified Code(s): R51.9 - Headache, unspecified Plan: Recommended she staying well hydrated, improve sleep hygiene, take 1 g of Tylenol every 8 hours and ibuprofen 600 mg every 6 hours, can add in some caffeine. Likely secondary to her shift work, possibly a thyroid dysfunction with the hair loss, recommended she try this regimen and if it does not improve, she should follow up with her primary care doctor in the next 2-3 weeks for further workup. Did review if she feels like she is having the worst headache of her life or a thunderclap headache or visual changes, she should go to the emergency room immediately. 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
[2024-04-10 08:06] VITALS: BP 136/98; PULSE 76; TEMP 36.5; O2SAT 98; BMI 34.6
== END 2024-04-10 09:06 | disposition home or self-care (01) ==
PROVIDERS: PCP Family Medicine; Visit Provider Physician Assistant
DX: R51.9 Headache, unspecified (principal); G47.26 Circadian rhythm sleep disorder, shift work type

== ENCOUNTER → 2024-04-10 08:02 | Outpatient (BNVA) | payer BC, SELFPAY | PROVIDERS: PCP Family Medicine; Visit Provider Physician Assistant ==

== ENCOUNTER 2024-04-14 08:03 | Outpatient (AMB) | payer BC, SELFPAY ==
--- NOTE | 2024-04-14 08:06 | AM.OFFWIN_ITS ---
Intake Vital Signs 04/14/24 08:07 Height 5 ft 7 in Weight 221 lb BMI 34.6 BP 130/80 Blood Pressure Location Rt brachial Position Sitting Pulse 77 Pulse Source Pulse Oximeter Temp 98.0 F Temp Source Oral Pulse Oximetry (%) 99 Intake Visit Reasons: EP-migranes Intake Note: pt is here for c/o migraines Patient Tobacco Use Status: Never used Tobacco Allergies penicillamine Allergy (Unknown, Verified 04/14/24 08:06) Unknown Penicillins [PENICILLINS] Allergy (Unknown, Verified 04/14/24 08:06) RASH Do you need a note to return to daycare/school/sports/work: No HPI HPI Comments History of Present Illness Details 29 y/o female patient who presents to [facility] [place] [facility] with c/o Chronic persistent headaches for the past 1 month. She does endorse Stress at work and she does work Third shift. Pt was seen 04/10 for similar concerns. Today she feels like her headaches her getting worse, and now has Diarrhea. [facility] Surgical History S/P wisdom tooth extraction No pertinent past surgical history Family History Mother No problems noted. 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 Cognitive needs: No Hearing needs: No Vision needs: No Review of Systems Const All systems reviewed & are unremarkable except as noted in HPI and below Physical Exam Vital Signs: Last Vital Signs Temp 98.0 F 04/14/24 08:07 Pulse 77 04/14/24 08:07 BP 130/80 04/14/24 08:07 Pulse Ox 99 04/14/24 08:07 BMI result Body Mass Index 34.6 Const General: comfortable Nutritional Appearance: obese Orientation/consciousness: patient oriented x3 HEENT Head: Yes normocephalic Resp Effort & Inspection: normal respiratory effort Auscultation: clear to auscultation bilaterally Cardio Heart sounds: S1 normal heart sound present and S2 normal heart sound present Neuro General: patient oriented x3 Assessment & Plan Assessment & Plan (1) Headache: Code(s): R51.9 - Headache, unspecified Qualifiers: Headache type: unspecified Headache chronicity pattern: acute headache Intractability: intractable Qualified Code(s): R51.9 - Headache, unspecified Plan: DDx's: Migraine vs Tension Discussed in length Triggers and prevention She will f/u with PCP Coding Level of Care Code Est Pt Level 4 (72391) Diagnoses Acute intractable headache, unspecified headache type R51.9 Headache type: unspecified Headache chronicity pattern: acute headache Intractability: intractable Time Spent (min) 20
[2024-04-14 08:07] VITALS: BP 130/80; PULSE 77; TEMP 36.7; O2SAT 99; BMI 34.6
== END 2024-04-14 08:26 | disposition home or self-care (01) ==
PROVIDERS: PCP Family Medicine; Visit Provider Nurse Practitioner Family
DX: R51.9 Headache, unspecified (principal)

== ENCOUNTER → 2024-04-14 08:03 | Outpatient (BNVA) | payer BC, SELFPAY | PROVIDERS: PCP Family Medicine; Visit Provider Nurse Practitioner Family ==

== ENCOUNTER 2024-05-20 10:29 | Outpatient (AMB) | payer BC, SELFPAY ==
--- NOTE | 2024-05-20 10:37 | MHC.PC.OV ---
Vital Signs 05/20/24 10:38 Height 5 ft 7 in Weight 221 lb 6 oz BMI 34.7 BP 110/74 Blood Pressure Location Lt brachial Position Sitting Respiration 16 Pulse 89 Pulse Source Pulse Oximeter Temp 98.0 F Temp Source Oral Pulse Oximetry (%) 98 Oxygen Delivery Method Room Air Intake Visit Reasons: fmla paperwork Intake Note: fmla paper work Allergies penicillamine Allergy (Unknown, Verified 05/20/24 10:37) Unknown Penicillins [PENICILLINS] Allergy (Unknown, Verified 05/20/24 10:37) RASH Tobacco use date assessed: 01/03/24 Dental Screening Dental Screen Date: 09/12/23 HPI fmla paperwork HPI Details 29 y/o female presents for FMLA paperwork, f/u anxiety/depression, difficulty sleeping, alopecia. Has complaints of headaches. Still on bupropion and setraline. She notes she does not have a therapist. PHQ-9 8, ASH-7 7 today. [facility] Surgical History S/P wisdom tooth extraction No pertinent past surgical history Family History Mother No problems noted. 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 1. Little interest or pleasure in doing things: several days 2. Feeling down, depressed, or hopeless: several days 3. Trouble falling or staying asleep, or sleeping too much: more than half the days 4. Feeling tired or having little energy: several days 5. Poor appetite or overeating: several days 6. Feeling bad about yourself - or that you are a failure or have let yourself or your family down: several days 7. Trouble concentrating on things, such as reading the newspaper or watching television: several days 8. Moving or speaking so slowly that other people could have noticed. Or the opposite - being so fidgety or restless that you have been moving around a lot more than usual: not at all 9. Thoughts that you would be better off or of hurting yourself in some way: not at all Total score: 8 Source: Developed by Drs. Wilmar Machuca, Pepper Vasquez, Randy Martinez and colleagues, with an educational edwin from [employer]. Thrive Questionnaire Date Thrive assessed: 05/18/24 I am a: Patient What is your living situation today?: I have a steady place to live Within the past 12 months, did the food you bought not last and you didn't have the money to get more?: Never true Within the past 12 months, did you worry whether your food would run out before you got money to buy more?: Never true Do you have trouble paying for medicines?: No Do you have trouble getting transportation to medical appointments?: No Do you have trouble paying your heating and electricity bill?: No Do you have trouble taking care of your child, family member or friend?: No Do you have trouble with day-to-day activities such as bathing, preparing meals, shopping, managing finances, etc.?: No Are you currently unemployed and looking for a job?: No Are you interested in more education?: No Please select the resources that you would like help with: None Currently or been in a relationship where the following occur: No concerns reported THRIVE Score: 0 AUDIT C Alcohol Use Questionnaire (AUDIT-C) 1. How often do you have a drink containing alcohol?: 2-4 times a month 2. How many drinks containing alcohol do you have on a typical day when you are drinking?: 1 or 2 3. How often do you have six or more drinks on one occasion?: Never Total Score: 2 ASH-7 AMB Questionnaire ASH-7 Date ASH - 7 assessed: 01/03/24 Feeling nervous, anxious, or on edge: 1 = Several days Not being able to stop or control worryin = Several days Worrying too much about different things: 1 = Several days Trouble relaxin = Several days Being so restless that it is hard to sit still: 1 = Several days Becoming easily annoyed or irritable: 1 = Several days Feeling afraid as if something awful might happen: 1 = Several days Total ASH-7 score (0-4 normal; 5-9 mild; 10-14 moderate; 15-21 severe): 7 Source: Developed by Drs. Wilmar Machuca, Pepper Vasquez, Randy Martinez and colleagues, with an educational edwin from [employer]. Review of Systems Psych Reports anxiety and Reports depression Physical exam (Primary Care) Vital Signs: Last Vital Signs Temp 98.0 F 05/20/24 10:38 Pulse 89 05/20/24 10:38 Resp 16 05/20/24 10:38 BP 110/74 05/20/24 10:38 Pulse Ox 98 05/20/24 10:38 Oxygen Delivery Method Room Air 05/20/24 10:38 BMI result Body Mass Index 34.7 Tobacco/Smoking Status: Tobacco use Status Tobacco use date assessed 01/03/24 05/20/24 10:41 Patient Tobacco Use Status Never used Tobacco 05/20/24 10:41 e-Cigarette/Vaping Use Never Used 05/20/24 10:41 PHQ-9: PHQ-9 Score PHQ-9: Total score 8 05/20/24 10:41 Thrive Assessment: Date of Thrive Assessment Date Thrive assessed 05/18/24 05/20/24 10:41 Currently or been in a relationship where the following occur: No concerns reported Coding Level of Care Code Est Pt Level 4 (53978) Diagnoses Anxiety F41.9 Difficulty sleeping G47.9 Alopecia areata L63.9 Acute intractable headache, unspecified headache type R51.9 Headache chronicity pattern: acute headache Headache type: unspecified Intractability: intractable Assessment & Plan Assessment & Plan (1) Anxiety: Code(s): F41.9 - Anxiety disorder, unspecified Category: Medical Plan: Ongoing?and?worsened?anxiety. She?is?taking?sertraline?and?bupropion?as?prescribed Have?written?letters?to?her?employer recommending?she?not?were?greater?than?40?hours?week?or?8?hours?shift?(no?overtime). Filling?out?FMLA?paperwork?today?adjust?her?schedule?for?no overtime. Also?referring?her[place]to[place]therapy/psychiatry. (2) Difficulty sleeping: Code(s): G47.9 - Sleep disorder, unspecified Category: Medical Plan: Continue?medications?for?anxiety Follow-up?sleep?medicine (3) Alopecia areata: Code(s): L63.9 - Alopecia areata, unspecified Category: Medical Plan: Had?referred?her?to?Dermatology.??Appointment?is?not?few?months Will?refill?medications Checking?labs?thyroid?hormone?feel?this?is?unlikely?a?cause (4) Headache: Code(s): R51.9 - Headache, unspecified Category: Medical Qualifiers: Headache chronicity pattern: acute headache Headache type: unspecified Intractability: intractable Qualified Code(s): R51.9 - Headache, unspecified Plan: Unilateral?headaches?primarily?at?left?side?forehead?eye Symptoms?almost?every day We?discussed?topiramate?but?this?will?interact?with?her contraception. Will?try?low?dose?of?metoprolol Orders: Orders Comprehensive Met. Panel Today F41.9 - Anxiety disorder, unspecified Complete Blood Count Auto Diff Today F41.9 - Anxiety disorder, unspecified, Z00.00 - Encounter for general adult medical examination without abnormal findings Free T4 (Free Thyroxine) Today E03.9 - Hypothyroidism, unspecified, F41.9 - Anxiety disorder, unspecified Vitamin D 25-OH Total Today E55.9 - Vitamin D deficiency, unspecified, F41.9 - Anxiety disorder, unspecified UA and rflx microscopic Today F41.9 - Anxiety disorder, unspecified, Z00.00 - Encounter for general adult medical examination without abnormal findings Thyroid Stimulating Hormone Today E03.9 - Hypothyroidism, unspecified, F41.9 - Anxiety disorder, unspecified Triiodothyronine T3 Total Today E03.9 - Hypothyroidism, unspecified, F41.9 - Anxiety disorder, unspecified Vitamin B12 and Folate Today E53.8 - Deficiency of other specified B group vitamins, F41.9 - Anxiety disorder, unspecified Referrals Psychiatry Outpatient Consultation Service F41.9 - Anxiety disorder, unspecified Medications: New metoprolol tartrate 12.5 mg (1/2 x 25 mg) PO BID 30 days PRN 30 tabs 2RF Headaches
[2024-05-20 10:38] VITALS: BP 110/74; PULSE 89; RESP 16; TEMP 36.7; O2SAT 98; BMI 34.7
== END 2024-05-20 11:32 | disposition home or self-care (01) ==
PROVIDERS: PCP Family Medicine; Visit Provider Family Medicine
DX: F41.9 Anxiety disorder, unspecified (principal); G47.9 Sleep disorder, unspecified; L63.9 Alopecia areata, unspecified; R51.9 Headache, unspecified

== ENCOUNTER 2024-05-20 11:53 | Outpatient (REF) | payer BC, SELFPAY ==
[2024-05-20 14:14] LABS: Appearance Urine Turbid; Color Urine Yellow; Glucose Urine UA Negative (Negative); Leukocyte Esterase Urine Small (1+) (Negative); Nitrite Urine Negative (Negative); PH 7.5 (5.0-9.0); Specific Gravity - Urine 1.015 (1.005-1.025); UMIC TRIGGER UA YES; Urine Blood Negative (Negative); Urine Ketones Negative (Negative); Urine Protein Negative (Neg-Trace)
[2024-05-20 14:15] LABS: MANUAL DIFF FLAG NO
[2024-05-20 14:18] LABS: Basophils Absolute Auto 0.1 X10*3/uL (0.0-0.2); Basophils Percent Auto 0.8 % (0-2); Eosinophils Absolute Auto 0.3 X10*3/uL (0.0-0.4); Eosinophils Percent Auto 4.1 % (0-4); Hematocrit 41.9 % (37.0-47.0); Hemoglobin 14.3 g/dl (12.0-16.0); Imm Gran Abs Auto 0.02 X10*3/uL (0.00-0.03); Imm Gran Pct Auto 0.3 % (0.0-0.4); Lymphocytes Percent Auto 40.3 % (20-40); Mean Corpuscular HGB Conc 34.1 g/dl (31.0-35.0); Mean Corpuscular Volume 87.8 fL (80.0-98.0); Mean Platelet Volume 8.9 fL (9.4-12.3); Monocytes Absolute Auto 0.5 X10*3/uL (0.1-1.2); Monocytes Percent Auto 7.2 % (2-11); Neutrophils Absolute Auto 3.5 x10*3/uL (2.0-8.3); Neutrophils Percent Auto 47.3 % (45-73); Platelet Count 284 X10*3/uL (160-400); Red Blood Count 4.77 X10*6/uL (4.20-5.50); Red Cell Distribution Width 13.1 % (11.0-16.0); White Blood Count 7.3 X10*3/uL (4.8-10.8)
[2024-05-20 14:30] LABS: Bacteria Urine Trace (None Seen); Hyaline Casts Urine 0-2 /LPF (0-2); Other Crystals Urine Present; WBC Urine 0-5 /HPF (0-5)
[2024-05-20 14:50] LABS: Alanine Aminotransferase 21 U/L (0-31); Albumin Level 4.2 g/dL (3.5-5.0); Alkaline Phosphatase 76 U/L (39-117); Anion Gap 12 (12-20); Aspartate Amino Transferase 24 U/L (5-31); Bilirubin Total 0.9 mg/dL (0.0-1.0); Blood Urea Nitrogen 11 mg/dL (9-16); Calcium 9.8 mg/dL (8.4-10.2); Carbon Dioxide 26 mmol/L (22-29); Chloride 108 mmol/L (96-108); Estimated Glomerular Filt Rate > 60; Glucose Random 69 mg/dL (60-115); Sodium 142 mmol/L (135-145); Total Protein 7.2 g/dL (6.5-8.0)
[2024-05-20 15:13] LABS: Folate 15.2 ng/mL (> or = 4.0); Vitamin B12 423 pg/mL (200-900)
[2024-05-20 15:14] LABS: Free T4 (Free Thyroxine) 1.05 ng/dL (0.71-1.85); TSH reflex Free T4 2.28 uIU/mL (0.32-4.0); Thyroid Stimulating Hormone 2.28 uIU/mL (0.32-4.0); Vitamin D 25-OH Total 43.3 ng/mL (>30)
[2024-05-21 16:53] LABS: Triiodothyronine T3 Total 152 ng/dL (76-181)
== END 2024-05-20 11:54 | disposition home or self-care (01) ==
LOC: HO.WFDLDS 11:53
PROVIDERS: Visit Provider Family Medicine
DX: Z00.00 Encounter for general adult medical examination without abnormal findings (principal); F41.9 Anxiety disorder, unspecified; E03.9 Hypothyroidism, unspecified; E55.9 Vitamin D deficiency, unspecified; E53.8 Deficiency of other specified B group vitamins
CPT/HCPCS: 36415; 80053; 81001; 82306; 82607; 82746; 84439; 84443; 84480; 85025

== ENCOUNTER 2024-10-13 11:37 | Outpatient (AMB) | payer BC, SELFPAY ==
--- NOTE | 2024-10-13 12:02 | A.OFFPC_ITS ---
Vital Signs 10/13/24 12:36 Height 5 ft 7 in Weight 225 lb 6 oz BMI 35.3 BP 134/64 Blood Pressure Location Lt brachial Position Sitting Respiration 16 Pulse 94 Pulse Source Pulse Oximeter Temp 97.5 F Temp Source Oral Pulse Oximetry (%) 98 Oxygen Delivery Method Room Air Intake Visit Reasons: fmla Allergies penicillamine Allergy (Unknown, Verified 10/13/24 12:38) Unknown Penicillins [PENICILLINS] Allergy (Unknown, Verified 10/13/24 12:38) RASH Tobacco use date assessed: 01/03/24 Dental Screening Dental Screen Date: 09/12/23 HPI fmla HPI Details 29 y/o female presents for FMLA jayy ovalles Also following up on headaches. Had discussed topiramate but it would interact with her contraception. Trialing low dose of metoprolol. PHQ-9 4, ASH-7 7 today. PFSH Surgical History S/P wisdom tooth extraction No pertinent past surgical history Family History Mother No problems noted. 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 1. Little interest or pleasure in doing things: not at all 2. Feeling down, depressed, or hopeless: not at all 3. Trouble falling or staying asleep, or sleeping too much: several days 4. Feeling tired or having little energy: several days 5. Poor appetite or overeating: several days 6. Feeling bad about yourself - or that you are a failure or have let yourself or your family down: not at all 7. Trouble concentrating on things, such as reading the newspaper or watching television: several days 8. Moving or speaking so slowly that other people could have noticed. Or the opposite - being so fidgety or restless that you have been moving around a lot more than usual: not at all 9. Thoughts that you would be better off or of hurting yourself in some way: not at all Total score: 4 Depression Screening Interpretation: Negative Depression Screening Done: Yes [id number] - PHQ-9 Billing: Yes Source: Developed by Drs. Wilmar Machuca, Pepper Vasquez, Randy Martinez and colleagues, with an educational edwin from [employer]. Thrive Questionnaire Date Thrive assessed: 10/13/24 I am a: Patient What is your living situation today?: I have a steady place to live Within the past 12 months, did the food you bought not last and you didn't have the money to get more?: Never true Within the past 12 months, did you worry whether your food would run out before you got money to buy more?: Never true Do you have trouble paying for medicines?: No Do you have trouble getting transportation to medical appointments?: No Do you have trouble paying your heating and electricity bill?: No Do you have trouble taking care of your child, family member or friend?: No Do you have trouble with day-to-day activities such as bathing, preparing meals, shopping, managing finances, etc.?: No Are you currently unemployed and looking for a job?: No Are you interested in more education?: No Please select the resources that you would like help with: None Currently or been in a relationship where the following occur: No concerns reported THRIVE Score: 0 AUDIT C Alcohol Use Questionnaire (AUDIT-C) 1. How often do you have a drink containing alcohol?: 2-4 times a month 2. How many drinks containing alcohol do you have on a typical day when you are drinking?: 1 or 2 3. How often do you have six or more drinks on one occasion?: Never Total Score: 2 ASH-7 AMB Questionnaire ASH-7 Date ASH - 7 assessed: 10/13/24 Feeling nervous, anxious, or on edge: 1 = Several days Not being able to stop or control worryin = Several days Worrying too much about different things: 1 = Several days Trouble relaxin = Several days Being so restless that it is hard to sit still: 1 = Several days Becoming easily annoyed or irritable: 1 = Several days Feeling afraid as if something awful might happen: 1 = Several days Total ASH-7 score (0-4 normal; 5-9 mild; 10-14 moderate; 15-21 severe): 7 Source: Developed by Drs. Wilmar Machuca, Pepper Vasquez, Randy Martinez and colleagues, with an educational edwin from [employer]. ASH-7 Assessment Billing ASH-7 Assessment Tool: ASH-7 Assessment 91859 Review of Systems Const Denies chills, Denies fatigue, Denies fever(s), Denies headache(s) and Denies weakness ENT Denies dizziness and Denies headache(s) Card Denies dyspnea Resp Denies cough, Denies dyspnea, Denies wheezing and Denies other (shortness of breath) Musc Denies numbness and Denies tingling Neuro Denies dizziness, Denies headache(s), Denies numbness, Denies tingling and Denies weakness Psych Denies anxiety and Denies depression Endo Denies fatigue Aller/Immun Denies wheezing Physical exam (Primary Care) Vital Signs: Last Vital Signs Temp 97.5 F 10/13/24 12:36 Pulse 94 10/13/24 12:36 Resp 16 10/13/24 12:36 BP 134/64 10/13/24 12:36 Pulse Ox 98 10/13/24 12:36 Oxygen Delivery Method Room Air 10/13/24 12:36 BMI result Body Mass Index 35.3 Tobacco/Smoking Status: Tobacco use Status Tobacco use date assessed 01/03/24 10/13/24 12:02 Patient Tobacco Use Status Never used Tobacco 10/13/24 12:02 e-Cigarette/Vaping Use Never Used 10/13/24 12:02 PHQ-9: PHQ-9 Score PHQ-9: Total score 4 10/13/24 12:39 Depression Screening Interpretation: Negative Thrive Assessment: Date of Thrive Assessment Date Thrive assessed 10/13/24 10/13/24 12:02 Currently or been in a relationship where the following occur: No concerns reported Const General: well developed; No acute distress Nutritional Appearance: well nourished Orientation/consciousness: patient oriented x3 HENMT Head: Yes normocephalic and Yes atraumatic Eyes General: appearance normal, both eyes and all related structures Pupils: Equal, round and reactive pupils present EOM: EOMs intact bilaterally Resp Effort & Inspection: normal respiratory effort Neuro General: patient oriented x3 and gait normal Cranial nerves: Yes Equal, round and reactive pupils present Psych Affect: normal affect Coding Level of Care Code Est Pt Level 3 (45450) Diagnoses Anxiety F41.9 Additional Codes ASH-7 Assessment Billing - ASH-7 Assessment Tool: ASH-7 Assessment 10977 ([id number]) PHQ-9 - 73549 - PHQ-9 Billing: Yes ([id number]) Assessment & Plan Assessment & Plan (1) Anxiety: Code(s): F41.9 - Anxiety disorder, unspecified Category: Medical Plan: Ongoing?anxiety,?headaches?and?alopecia. Her?treatment?plan?includes?decreasing?stress,?avoiding?fatigue?and?over?work. She?has?had?an?FMLA?plan?outlining?that? she?should?work?no?more?than?8?hours?per?shift?and?no?more?than?40?hours?week. He?continue?sertraline Had?referred?her?to?Psychiatry?though?she?was?not?contacted.??Will?make?another? referral. Though?out?FMLA?paperwork?for?her?from?today?through?May?2024. Will?follow-up?with?her?in?about?6?months.?? Medications: Changed From sertraline 75 mg (1.5 x 50 mg) PO DAILY 30 days 45 tabs 2RF To sertraline 75 mg (1.5 x 50 mg) PO DAILY 90 days 135 tabs 2RF Discontinued bupropion HCl Discontinued Reason: Doctor's Order 75 mg PO QAM 30 days 30 tabs 1RF
[2024-10-13 12:36] VITALS: BP 134/64; PULSE 94; RESP 16; TEMP 36.4; O2SAT 98; BMI 35.3
--- OUTSIDE RECORDS SUMMARY | 2024-10-13 13:46 | XMS_ITS | Clinical Summary ---
Author Organization [facility] Address [address] [place] [address] Phone Care Team Providers Care Production Machine Tender Name Role Phone Unavailable Primary Care Provider Unavailabl e Allergies Active Allergy Reactions Criticality Noted Date Comments Penicillins Rash Low Medications Levonorgest-Eth Estrad 91-Day (SEASONIQUE) 0.15-0.03 &0.01 MG tablet Take by mouth. 08/12/2012 Active Active Problems Problem Noted Date Diagnosed Date BMI (body mass index), pediatric, > 99% for age 0802/10/2018 Assessment & Plan (02/27/2019 2:35 PM EDT): Discussed increasing weight. Import of eating more fruits and veges and getting daily exercise discussed. 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 Has been told that this is likely a persistent issues. Assessment & Plan (02/10/2018 3:06 PM EDT): Under good control. Using unscented cream. Resolved Problems Problem Noted Date Diagnosed Date Resolved Date DUB (dysfunctional uterine bleeding) 08/17/2010 02/27/2019 Overview (02/27/2019): Resolved on 3 month OCP. Followed by DEPUTY CLERK Assessment & Plan (02/27/2019 1:37 PM EDT): Resolved on 3 month OCP. Followed by DEPUTY CLERK Immunizations Immunization Administration Dates Next Due DTP 09/28/1998, 8,1997,06/02 DTaP 5 09/11/2001 H1N1 05/17/2009 HPV, Quadrivalent 09/28/2011,10/27/2010,08/18/19 11 Hep A, ped/adol 04/07/2015,04/01/2014 Hep B, ped/adol 1997,1997,1997 Hib (PRP-T) 07/13/1998, 8,1997,06/02 IPV 09/11/2001 Influenza Split 04/25/2011,03/22/2010 Influenza, injectable, quadrivalent 04/07/2015 Influenza, injectable, quadr ivalent, preservative free 02/27/2019,03/12/2018,02/07/2017,03/02,04/01/2014,04/21/2013 Influenza, injectable, trivalent 06/24/2009,10/2007,04/21/2007 Influenza, intranasal, trivalent 03/12/2012 MMR 09/11/2001,04/06/1998 Meningococcal Conj (Menactra) MCV4P 10/30/2016,1 06/21/2007 OPV 1997,1997,1997 Tdap 11/02/2017,04/21/2008 Varicella 04/21/2008,07/13/1998 Family History Medical History Relation Name Comments Hyperlipidemia Father Jeremy Hypertension Father Jeremy Leukemia Maternal Grandfather Lung cancer Maternal Grandfather Diabetes Maternal Grandmother Obesity Mother Analisa Diabetes Mother's Brother Breast cancer Mother's Sister Diabetes Mother's Sister Skin cancer Paternal Grandmother Relation Name Status Comments Brother Sid Alive Brother: Alive and well, ocular albinism, anxiety Father Jeremy Alive Father: Obesity Maternal Grandfather Materna l grandfather: [place] Maternal Grandmother Mother Analisa Alive Mother: Alive a nd well Mother's Brother Mother's Sister Other Family history of Diabetes mellitus, No family history of Thrombophilia, Family history of Hyperlipidemia, Family history of Strabismus Paternal Grandmother Paterna l grandmother: Melanoma Social History Tobacco Use Types Packs/Day Years Used Date Smoking Tobacco: Never Smokeless Tobacco: Never Comments:Never smoker Hunger/Food Answer Date Recorded No 02/27/2019 Stable Housing Answer Date Recorded 0 02/27/2019 Transportation Concerns Answer Date Rec orded No 02/27/2019 Hazards in Home Answer Date Recorded No 02/27/2019 Financing Utilities Answer Date Recorde d No 02/27/2019 Safety at Home Answer Date Recorded No 02/27/2019 Outside Support Answer Date Recorded No 02/27/2019 Understanding Health Concerns Answer Da te Recorded No 02/27/2019 Financing Health Concerns Answer Date R ecorded No 02/27/2019 Missing School or Work Answer Date David rded No 02/27/2019 Comments No Sex and Gender Information Value Date Recorded Sex Assigned at Female 02/27/2019 1:30 PM EDT Legal Sex Female 5:02 PM EDT Gender Identity Female 02/27/2019 1:30 PM EDT Sexual Orientation Straight 02/27/2019 1: 30 PM EDT Last Filed Vital Signs Vital Sign Reading Time Taken Comments Blood Pressure 124/81 02/27/2019 1:20 PM EDT Pulse 103 02/27/2019 1:20 PM EDT Temperature 37 ??C (98.6 ??F) 02/27/2019 1:20 PM EDT Respiratory Rate - - Oxygen Saturation - - Inhaled Oxygen Concentration - - Weight 107 kg (235 lb 12.8 oz) 02/27/2019 1:20 P M EDT Height 172.7 cm (5' 8 ) 02/27/2019 1:20 PM EDT Body Mass Index 35.85 02/27/2019 1:20 PM EDT Plan of Treatment Health Maintenance Due Date Last Done Comments Influenza Vaccines (#1) 2024 02/28/20, 03/12/2018, 02/07/2017, Additional history exists COVID-19 Vaccine ( season) 2024 DTaP,Tdap,and Td Vaccines (8 - Td or Tdap) 11/03/2027 11/02/2017, 04/21/2008, 09/11/2001, Additional history exists Hepatitis B Vaccines Completed 1997, 1997, 1997 HIB Vaccines Completed 07/13/1998, 10/15, 1997, Additional history exists IPV Vaccines Completed 09/11/2001, 10/15, 1997, Additional history exists MMR Vaccines Completed 09/11/2001, 04/06/1998 Varicella Vaccines Completed 04/21/2008, 07/13/1998 HPV Vaccines Completed 09/28/2011, 10/15, 08/17/2010 Hepatitis A Vaccines Completed 04/07/2015, 04/01/20 14 Meningococcal Vaccine Aged Out 10/30/2016, 008 No longer eligible based on patient's age to complete this topic Men B Vaccine Aged Out No longer elig ible based on patient's age to complete this topic Pneumococcal Vaccine Aged Out No long er eligible based on patient's age to complete this topic Procedures * Due to [place] [employer] law, this organization might not be sharing sensitive test results. Procedure Name Priority Date/Time Associated Diagnosis Comments CHLAMYDIA AND GONORRHEA, AMPLIFIED Routine 02/27/2019 1:27 PM EDT Special screening for bacterial and spirochetal disease from Last 3 Months or Most Recently Relevant to Health Maintenance Results * Due to [place] [employer] law, this organization might not be sharing sensitive test results. * Chlamydia and Gonorrhoea, Amplified (02/27/2019 1:27 PM EDT) Chlamydia Trachomatis, DNA Probe NEGATIVE (NEG) [facility] Comment: No Chlamydia Trachomatis RNA detected in this patient's sample ? (REFERENCE RANGE/NORMAL VALUE: NOT DETECTED) ? Note: This test uses computer science instructor- mediated amplification method to detect rRNA from C. Trachomatis URINE GC AMP PROBE NEGATIVE (NEG) [facility] Comment: No Neisseria Gonorrhoeae RNA detected in this patient's sample ? (REFERENCE RANGE/NORMAL VALUE: NOT DETECTED) ? NOTE: This test uses computer science instructor-mediated amplification method to detect rRNA from N.Gonorrhoeae. A negative result does not preclude infection. In the case of a negative urine result, testing of an endocervical(female) or urethral (male) specimen is recommended if there is high clinical suspicion of infection. Due to very high sensitivity of Nucleic Acid Amplification Test, false positive results may occur. Therefore, specimen handling is extremely important. In patients in whom the disease is unlikely, additional sample for testing should be considered after an initial positive result. The performance characteristics of this test have not been evaluated in children. The Aptima Combo2 assay is not intended for the evaluation of suspected sexual abuse or for other medico-legal indications. The ordering provider should assess if the patient had consensual sex without risk of sexual abuse. Consult the [facility] if needed. Contact phone number . Therapeutic failure or success cannot be determined with the Aptima Combo2 assay since nucleic acid may persist following appropriate antimicrobial therapy. The Centers for Disease Control and Prevention (CDC) recommends confirmatory retesting using culture or a different nucleic acid amplification test when positive results occur, if indicated. Testing performed or reported by [facility], a Service of [facility], [facility] [address], [place] [address] Urine 02/27/2019 1:27 PM EDT 02/28/2019 12:10 AM EDT Ilda Regan MD LAB MICROBIOLOGY - GENERAL O RDERABLES Final Result [facility] from Last 3 Months or Most Recently Relevant to Health Maintenance
--- OUTSIDE RECORDS SUMMARY | 2024-10-13 13:46 | XMS_ITS | Encounter Summary ---
Author Organization [facility] Address [address] [place] [address] Phone Care Team Providers Care Physician Surgeon Name Role Phone Unavailable Primary Care Provider Unavailabl e Encounter Details Date Type Department Care Team (Late st Contact Info) Description 01/31/2017 Conversion Encounter [facility] - [address] [address] Social History Tobacco Use Types Packs/Day Years Used Date Smoking Tobacco: Never Assessed Comments Unknown Sex and Gender Information Value Date Recorded Sex Assigned at Female 02/27/2019 1:30 PM EDT Legal Sex Female 5:02 PM EDT Gender Identity Female 02/27/2019 1:30 PM EDT Sexual Orientation Straight 02/27/2019 1: 30 PM EDT documented as of this encounter Plan of Treatment Not on file documented as of this encounter Visit Diagnoses Not on filedocumented in this encounter
--- OUTSIDE RECORDS SUMMARY | 2024-10-13 13:46 | XMS_ITS | Encounter Summary ---
Author Organization [facility] Address [address] [place] [address] Phone Care Team Providers Care Psychiatric Cns Name Role Phone Unavailable Primary Care Provider Unavailabl e Encounter Details Date Type Department Care Team (Late st Contact Info) Description 11/23/[address] [facility] [place] Family Medicine [address] [place] [address] Family Medicine, Physician [address] [place] [address] Social History Tobacco Use Types Packs/Day Years [...]
--- OUTSIDE RECORDS SUMMARY | 2024-10-13 13:46 | XMS_ITS | Patient Health Record ---
Author Organization [facility] Address [address] [place] [address] Care Team Providers Care Project Scientist Name Role Phone Betty Blake NP Primary Care Provider Marcial Downing Unavailable [phone] Allergies Allergen (clinical drug ingredient) Drug/Non Drug Allergy documented on EMR Reaction Allergy Type Onset Date Status Penicillin rash Drug Allergy Active Reason For Referral No Information Medications Medication SIG (Take, Route, Frequency, Duration) Notes Start Date End Date Status School Note . . . . for . 09/10/2013 Act raymundo Multivitamin Active Seasonique 0.15-0.03 &0.01 MG Orally Active Social History Tobacco use other than smoking: Question Answer Notes Are you an other tobacco user? No Problems Problem Type SNOMED Code ICD Code Onset Dates Problem Status W/U Status Risk Notes Problem [id number] Hammer toe of right foot (M20.41) Active confirmed Problem [id number] Hammer toe of left foot (M20.42) Active confirmed Plan Of Treatment Pending Test Test Name Order Date [id number] Destruction, -09/10/2013 [id number]-Ydue Destruction, -10/19/2013 Insurance Providers Payer Name Payer Address Payer Phone Subscriber Number Group Number Insured Name Patient Relationship to Insured Coverage Start Date Coverage End Date [employer] Others [address] [place] [address] [phone] [id number] Analisa Stout Natural Child - Insured has Financial Responsibility Medical (General) History Medical History History ICD Code Warts Eczema
--- OUTSIDE RECORDS SUMMARY | 2024-10-13 13:46 | XMS_ITS | Encounter Summary ---
Author Organization [facility] Address [address] [place] [address] Phone Care Team Providers Care Ticket Dispatcher Name Role Phone Unavailable Primary Care Provider Unavailabl e Encounter Details Date Type Department Care Team (Late st Contact Info) Description 02/25/2014 Documentation [facility] [place] Family Medicine [address] [place] [address] Family Medicine, Physician [address] [place] [address] Social History Tobacco Use Types Packs/Day Years [...]
== END 2024-10-13 13:36 | disposition home or self-care (01) ==
LOC: HO.HMCFM 11:37
PROVIDERS: PCP Family Medicine; Visit Provider Family Medicine
DX: F41.9 Anxiety disorder, unspecified (principal)

== ENCOUNTER → 2024-10-13 11:37 | Outpatient (BNVA) | payer BC, SELFPAY | PROVIDERS: PCP Family Medicine; Visit Provider Family Medicine | DX: Z02.79 Encounter for issue of other medical certificate (principal); F41.9 Anxiety disorder, unspecified; R51.9 Headache, unspecified; L65.9 Nonscarring hair loss, unspecified | CPT/HCPCS: 96127 ==

== ENCOUNTER 2025-04-01 15:35 | Outpatient (AMB) | payer BC, SELFPAY ==
--- NOTE | 2025-04-01 15:37 | MHC.PC.OV ---
Vital Signs 04/01/25 15:44 Height 5 ft 7 in Weight 224 lb 8 oz BMI 35.2 BP 138/81 Blood Pressure Location Lt brachial Position Sitting Respiration 14 Pulse 86 Pulse Source Pulse Oximeter Temp 96.3 F L Temp Source Temporal Artery Scan Pulse Oximetry (%) 98 Oxygen Delivery Method Room Air Intake Visit Reasons: anxiety Intake Note: Patient c/o anxiety and state her medication is not working well with her anxiety and patient also c/o hair loss. Right Of Way Worker Required: No Allergies penicillamine Allergy (Unknown, Verified 04/01/25 15:38) Unknown Penicillins (PENICILLINS) Allergy (Unknown, Verified 04/01/25 15:38) RASH Medication List - Last Reconciled 04/01/25 by MD Adan Herman norgest/e.estradiol-e.estrad 0.15 mg-30 mcg (84)/10 mcg (7) (Seasonique) 1 tab PO DAILY multivitamin with minerals (Hair,Skin and Nails tablet) 1 tab PO BEDTIME sertraline 75 mg (1.5 x 50 mg) PO DAILY 90 days Tobacco use date assessed: 04/01/25 Dental Screening Dental Screen Date: 04/01/25 Did you have a dental visit in the last 12 months?: Yes Did you have a dental problem in the last 6 months where you did not have access to dental care?: No Was dental information given to patient?: Patient has dentist HPI anxiety HPI Details 30 yo female presents to f/u anxiety. PHQ-9 8, ASH-7 10 today. Reports ongoing anxiety and reports ongoing concerns about hair loss/thinning. PFSH Surgical History S/P wisdom tooth extraction No pertinent past surgical history Family History Mother No problems noted. 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 1. Little interest or pleasure in doing things: several days 2. Feeling down, depressed, or hopeless: several days 3. Trouble falling or staying asleep, or sleeping too much: more than half the days 4. Feeling tired or having little energy: several days 5. Poor appetite or overeating: several days 6. Feeling bad about yourself - or that you are a failure or have let yourself or your family down: several days 7. Trouble concentrating on things, such as reading the newspaper or watching television: several days 8. Moving or speaking so slowly that other people could have noticed. Or the opposite - being so fidgety or restless that you have been moving around a lot more than usual: not at all 9. Thoughts that you would be better off or of hurting yourself in some way: not at all Total score: 8 Depression Screening Interpretation: Positive Depression Screening Done: Yes 38005 - PHQ-9 Billing: Yes Source: Developed by Drs. Wilmar Machuca, Pepper Vasquez, Randy Martinez and colleagues, with an educational edwin from [employer]. Thrive Questionnaire Date Thrive assessed: 04/01/25 I am a: Patient What is your living situation today?: I have a steady place to live Within the past 12 months, did the food you bought not last and you didn't have the money to get more?: Never true Within the past 12 months, did you worry whether your food would run out before you got money to buy more?: Never true Do you have trouble paying for medicines?: No Do you have trouble getting transportation to medical appointments?: No Do you have trouble paying your heating and electricity bill?: No Do you have trouble taking care of your child, family member or friend?: No Do you have trouble with day-to-day activities such as bathing, preparing meals, shopping, managing finances, etc.?: No Are you currently unemployed and looking for a job?: No Are you interested in more education?: No Please select the resources that you would like help with: None Currently or been in a relationship where the following occur: No concerns reported THRIVE Score: 0 ASH-7 AMB Questionnaire ASH-7 Date ASH - 7 assessed: 04/01/25 Feeling nervous, anxious, or on edge: 2 = More than half the days Not being able to stop or control worryin = More than half the days Worrying too much about different things: 2 = More than half the days Trouble relaxin = More than half the days Being so restless that it is hard to sit still: 1 = Several days Becoming easily annoyed or irritable: 1 = Several days Feeling afraid as if something awful might happen: 0 = Not at all Total ASH-7 score (0-4 normal; 5-9 mild; 10-14 moderate; 15-21 severe): 10 Source: Developed by Drs. Wilmar Machuca, Pepper Vasquez, Randy Martinez and colleagues, with an educational edwin from [employer]. ASH-7 Assessment Billing ASH-7 Assessment Tool: ASH-7 Assessment 33627 Review of Systems Const Denies chills, Denies fatigue, Denies fever(s), Denies headache(s) and Denies weakness ENT Denies dizziness and Denies headache(s) Card Denies dyspnea Resp Denies cough, Denies dyspnea, Denies wheezing and Denies other (shortness of breath) Musc Denies numbness and Denies tingling Neuro Denies dizziness, Denies headache(s), Denies numbness, Denies tingling and Denies weakness Psych Reports anxiety and Reports depression Endo Denies fatigue Aller/Immun Denies wheezing Physical exam (Primary Care) Vital Signs: Last Vital Signs Temp 96.3 F L 04/01/25 15:44 Pulse 86 04/01/25 15:44 Resp 14 04/01/25 15:44 BP 138/81 04/01/25 15:44 Pulse Ox 98 04/01/25 15:44 Oxygen Delivery Method Room Air 04/01/25 15:44 BMI result Body Mass Index 35.2 Tobacco/Smoking Status: Tobacco use Status Tobacco use date assessed 04/01/25 04/01/25 15:40 Patient Tobacco Use Status Never used Tobacco 04/01/25 15:40 e-Cigarette/Vaping Use Never Used 04/01/25 15:40 PHQ-9: PHQ-9 Score PHQ-9: Total score 8 04/01/25 16:25 Depression Screening Interpretation: Positive Thrive Assessment: Date of Thrive Assessment Date Thrive assessed 04/01/25 04/01/25 15:40 Currently or been in a relationship where the following occur: No concerns reported Const General: well developed; No acute distress Nutritional Appearance: well nourished Orientation/consciousness: patient oriented x3 HENMT Head: Yes normocephalic and Yes atraumatic Eyes General: appearance normal, both eyes and all related structures Pupils: Equal, round and reactive pupils present EOM: EOMs intact bilaterally Resp Effort & Inspection: normal respiratory effort Neuro General: patient oriented x3 and gait normal Cranial nerves: Yes Equal, round and reactive pupils present Psych Affect: normal affect Coding Level of Care Code Est Pt Level 4 (63630) Diagnoses Anxiety F41.9 Alopecia areata L63.9 Additional Codes ASH-7 Assessment Billing - ASH-7 Assessment Tool: ASH-7 Assessment 80146 ([id number]) PHQ-9 - 41666 - PHQ-9 Billing: Yes ([id number]) Assessment & Plan Assessment & Plan (1) Anxiety: Code(s): F41.9 - Anxiety disorder, unspecified Category: Medical (2) Alopecia areata: Code(s): L63.9 - Alopecia areata, unspecified Category: Medical Plan Ongoing?anxiety,?headaches?and?alopecia. Her?treatment?plan?includes?decreasing?stress,?avoiding?fatigue?and?over?work. She?has?had?an?FMLA?plan?outlining?that?she?should?work?no?more?than?8?hours?per?shift?and?no?more?than?40?hours?week. He?continue?sertraline Had?referred?her?to?Psychiatry?though?she?was?not?contacted.??Will?make?another?referral. Though?out?FMLA?paperwork?for?her?from?today?through?September 30, 2024. Will follow-up lab work in 3 4 weeks Will?follow-up?with?her regarding anxiety and FMLA paperwork?in?about?6?months.? Ongoing alopecia She says this has improved significantly around the time she saw Dermatology but has worsened again Likely secondary to anxiety Will treat underlying cause-see below Patient notes some worsened anxiety She has been on sertraline 75 mcg daily since July 2023. Will increase this to 150 mg daily. Will give her a small dose of clonazepam p.r.n. increased anxiety. We discussed using this as needed in conjunction with her SSRI. Patient understands. Had made [place] [facility] [place]. I have made a new referral and given her the number for their office. Orders: Orders Complete Blood Count Auto Diff 04/01/25 Z00.00 - Encounter for general adult medical examination without abnormal findings Free T4 (Free Thyroxine) 04/01/25 E03.9 - Hypothyroidism, unspecified Thyroid Stimulating Hormone 04/01/25 E03.9 - Hypothyroidism, unspecified Triiodothyronine T3 Total 04/01/25 E03.9 - Hypothyroidism, unspecified UA CC w/rflx Micro + Cult 04/01/25 Z00.00 - Encounter for general adult medical examination without abnormal findings Vitamin D 25-OH Total 04/01/25 E55.9 - Vitamin D deficiency, unspecified Comprehensive Stanton. Panel Fast 04/01/25 Z00.00 - Encounter for general adult medical examination without abnormal findings Lipid Panel 04/01/25 Z00.00 - Encounter for general adult medical examination without abnormal findings Microalbumin, Random (w Creat) 04/01/25 I10 - Essential (primary) hypertension Vitamin B12 and Folate 04/01/25 E53.8 - Deficiency of other specified B group vitamins Referrals Psychiatry Outpatient Consultation Service F41.9 - Anxiety disorder, unspecified
[2025-04-01 15:44] VITALS: BP 138/81; PULSE 86; RESP 14; TEMP 35.7; O2SAT 98; BMI 35.2
--- OUTSIDE RECORDS SUMMARY | 2025-04-01 19:23 | XMS_ITS | Encounter Summary ---
Author Organization [facility] Address [address] [place] [address] Phone Care Team Providers Care Autoglazier Name Role Phone Unavailable Primary Care Provider Unavailabl e Encounter Details Date Type Department Care Team (Late st Contact Info) Description 02/25/2014 [place]ation [facility] [place] [address] [place] [address] Family Medicine, Physician [address] [place] [address] Social History Tobacco Use Types Packs/Day Years [...]
--- OUTSIDE RECORDS SUMMARY | 2025-04-01 19:23 | XMS_ITS | Patient Health Record ---
Author Organization [facility] Address [address] [facility] [place] [address] Care Team Providers Care Email Marketing Manager Name Role Phone Betty Blake NP Primary Care Provider Marcial Downing Unavailable [phone] Allergies Allergen (clinical drug ingredient) Drug/Non Drug Allergy documented on EMR Reaction Allergy Type Onset Date Status Penicillin rash Drug Allergy Active Reason For Referral No Information Medications Medication SIG (Take, Route, Frequency, Duration) Notes Start Date End Date Status School Note . . . .; Duration: . 09/10/2013 Active Multivitamin Active Seasonique 0.15-0.03 &0.01 MG Orally Active Social History Tobacco use other than smoking: Question Answer Notes Are you an other tobacco user? No Problems Problem Type SNOMED Code ICD Code Onset Dates Problem Status W/U Status Risk Notes Problem Acquired hammer toe of right foot (3691131843717 105) Hammer toe of right foot (M20.41) Active confirmed Problem Acquired hammer toe of left foot ([id number] 103) Hammer toe of left foot (M20.42) Active confirmed Plan Of Treatment Pending Test Test Name Order Date [id number]-Ytdj Destruction, -09/10/2013 05691-Ouiy Destruction, -10/19/2013 Insurance Providers Payer Name Payer Address Payer Phone Subscriber Number Group Number Insured Name Patient Relationship to Insured Coverage Start Date Coverage End Date [facility] All Others [address] [place] [address] [phone] [id number] Analisa Stout Child - Insured has Financial Responsibility Medical (General) History Medical History History ICD Code Warts Eczema
--- OUTSIDE RECORDS SUMMARY | 2025-04-01 19:23 | XMS_ITS | Encounter Summary ---
Author Organization [facility] Address [address] [place] [address] Phone Care Team Providers Care Business Support Specialist Name Role Phone Unavailable Primary Care Provider Unavailabl e Encounter Details Date Type Department Care Team (Late st Contact Info) Description 01/31/2017 Conversion Encounter [facility] - [address] [address] Social History Tobacco Use Types Packs/Day Years [...]
--- OUTSIDE RECORDS SUMMARY | 2025-04-01 19:23 | XMS_ITS | Encounter Summary ---
Author Organization [facility] Address [address] [place] [address] Phone Care Team Providers Care Waxing Machine Operator Helper Name Role Phone Unavailable Primary Care Provider Unavailabl e Encounter Details Date Type Department Care Team (Late st Contact Info) Description 11/23/2009 Documentation [facility] [place] Family Medicine [address] [place] [address] Family Medicine, Physician [address] [place] [address] Social History Tobacco Use Types Packs/Day Years [...]
--- OUTSIDE RECORDS SUMMARY | 2025-04-01 19:23 | XMS_ITS | Clinical Summary ---
Author Organization [facility] Address [address] [place] [address] Phone Care Team Providers Care Java Software Developer Name Role Phone Unavailable Primary Care Provider [...] Resolved on 3 month OCP. Followed by ANESTHESIOLOGY MEDICAL DOCTOR Assessment & Plan (02/27/2019 1:37 PM EDT): Resolved on 3 month OCP. Followed by ANESTHESIOLOGY MEDICAL DOCTOR Immunizations Immunization Administration Dates Next Due DTP [...] Father: Obesity Maternal Grandfather Materna l grandfather: [place] Maternal Grandmother Mother Analisa Alive Mother: Alive [...] 103 02/27/2019 1:20 PM EDT Temperature 37 C (98.6 F) 02/27/2019 1:20 PM EDT Respiratory Rate - - Oxygen Saturation - - Inhaled Oxygen Concentration - - Weight 107 kg (235 lb 12.8 oz) 02/27/2019 1:20 P M EDT Height 172.7 cm (5' 8 ) 02/27/2019 1:20 PM EDT Body Mass Index 35.85 02/27/2019 1:20 PM EDT Plan of Treatment Health Maintenance Due Date Last Done Comments Influenza Vaccines (#1) 2025 02/28/20, 03/12/2018, 02/07/2017, Additional history exists COVID-19 Vaccine ( season) 2025 DTaP,Tdap,and Td Vaccines (8 - Td or [...] complete this topic Procedures * Due to [facility] law, this organization might not be sharing sensitive test results. Procedure Name Priority Date/Time Associated Diagnosis Comments CHLAMYDIA AND GONORRHEA, AMPLIFIED Routine 02/27/2019 1:27 PM EDT Special screening for bacterial and spirochetal disease from Last 3 Months or Most Recently Relevant to Health Maintenance Results * Due to [facility] law, this organization might not be sharing sensitive test results. * Chlamydia and Gonorrhoea, Amplified (02/27/2019 1:27 PM EDT) Chlamydia Trachomatis, DNA Probe NEGATIVE (NEG) [facility] Comment: No Chlamydia Trachomatis RNA detected in this patient's sample (REFERENCE RANGE/NORMAL VALUE: NOT DETECTED) Note: This test uses corrugator operator- mediated amplification method to detect rRNA from C. Trachomatis URINE GC AMP PROBE NEGATIVE (NEG) [facility] Comment: No Neisseria Gonorrhoeae RNA detected in this patient's sample (REFERENCE RANGE/NORMAL VALUE: NOT DETECTED) NOTE: This test uses corrugator operator-mediated amplification method to detect rRNA from N.Gonorrhoeae. [...] without risk of sexual abuse. Consult the [facility] if needed. Contact phone number . Therapeutic failure or success cannot be determined with the Aptima Combo2 assay since nucleic acid may persist following appropriate antimicrobial therapy. The Centers for Disease Control and Prevention (CDC) recommends confirmatory retesting using culture or a different nucleic acid amplification test when positive results occur, if indicated. Testing performed or reported by [facility], a Service of [facility], [address] [place] [address] Urine 02/27/2019 1:27 PM EDT 02/28/2019 12:10 AM EDT us Ilda Regan MD LAB MICROBIOLOGY - GENERAL O RDERABLES Final Result [facility] from Last 3 Months or Most Recently Relevant to Health Maintenance
== END 2025-04-02 17:03 | disposition home or self-care (01) ==
LOC: HO.HMCFM 15:36
PROVIDERS: PCP Family Medicine; Visit Provider Family Medicine
DX: F41.9 Anxiety disorder, unspecified (principal); L63.9 Alopecia areata, unspecified

== ENCOUNTER → 2025-04-01 15:35 | Outpatient (BNVA) | payer BC, SELFPAY | PROVIDERS: PCP Family Medicine; Visit Provider Family Medicine | DX: I10 Essential (primary) hypertension (principal); F41.9 Anxiety disorder, unspecified; L63.9 Alopecia areata, unspecified; E03.9 Hypothyroidism, unspecified; E53.8 Deficiency of other specified B group vitamins | CPT/HCPCS: 96127 ==